=== PATIENT | female | born 1940 | race Caucasian/White ===

== ENCOUNTER 2018-11-11 11:29 | Day surgery (SDC) | payer MEDICARE ==
[2018-11-11] MEDS ORDERED: Xylocaine-Mpf 2% 5 Ml Vial IJ ONE (11:30)
[2018-11-11] MEDS ORDERED: DIPRIVAN 200 MG/20 ML IV ONE (11:30)
[2018-11-11] MEDS ORDERED: Decadron 4 MG INJ IV ONE (11:30)
[2018-11-11] MEDS ORDERED: Lactated Ringers 1,000 ML IV ONE (12:06)
--- NOTE | 2018-11-11 14:45 | XRAY ---
Indication: Left C2-C5 MBB. Intraoperative fluoroscopy was provided for 22 seconds. 3 digital spot images submitted for interpretation demonstrates posterior spinal needle tips projecting over the left C3-C4-C5 facets. Correlate with intraoperative findings/report.
--- NOTE | 2018-11-11 15:29 | XRAY ---
22 seconds fluoroscopy time in surgery for left C2-C5 MBB.
== END 2018-11-11 13:55 | disposition home or self-care (01) ==
LOC: SDC-PAIN 11:29
PROVIDERS: ATTEND Psychiatry & Neurology Pain Medicine
DX: M47.812 Spondylosis without myelopathy or radiculopathy, cervical region (principal); I10 Essential (primary) hypertension; Z79.899 Other long term (current) drug therapy
CPT/HCPCS: 64490; 64491; 72020; 77002; 99100; J1100; J2704